=== PATIENT | female | born 1985 | race Asian ===

== ENCOUNTER 2021-08-20 10:12 | Emergency (ER) | payer OTHER ==
[2021-08-20] MEDS ORDERED: cefTRIAXone 1 GM VIAL IM STA (10:47)
[2021-08-20] MEDS ORDERED: LIDOCAINE 1% 2 ML VIAL MC ONE (10:47)
--- NOTE | 2021-08-20 10:49 | ED Physician Documentation ---
PD HPI UPPER EXT INJURY - Stated complaint Stated Complaint: SWELLING RT HAND - Chief complaint Chief Complaint: Ext Problem - History obtained from History obtained from: Patient - History of Present Illness Location: Right, Hand Type of injury: Burn Where injury occurred: Home Timing - onset: How many days ago (4) Timing - duration: Days (4) Timing - details: Abrupt onset, Still present Improved by: Rest, Immobilization Worsened by: Moving, Palpating Associated symptoms: Swelling, Discolored. No: Weakness, Numbness Contributing factors: No: Anticoagulated Similar symptoms before: Has not had sx before Recently seen: Clinic - Additonal information Additional information: 36-year-old female reports that she burned her finger on the barbecue 4 days ago and she just burned the third and fourth digits over the proximal phalange and not very badly. Subsequently she has developed redness and swelling this extended up the dorsum of the hand all the way to the wrist. Day by day swelling and tenderness have gotten worse. [place] to [place] hospital here for treatment. She denies any fever she denies any recent illness. She does not have much in the way of pain associated with this. Review of Systems Constitutional: denies: Fever Eyes: denies: Decreased vision Ears: denies: Ear pain Nose: denies: Congestion Throat: denies: Sore throat Cardiac: denies: Chest pain / pressure Respiratory: denies: Dyspnea GI: denies: Abdominal Pain, Nausea, Vomiting, Constipation, Diarrhea : denies: Dysuria, Frequency PD PAST MEDICAL HISTORY - Past Medical History Past Medical History: No - Past Surgical History Past Surgical History: Yes Ortho: Rotator cuff repair - Present Medications Home Medications: Ambulatory Orders Medication Instructions Recorded Confirmed cephALEXin [Keflex] 500 mg PO Q6H #28 cap 08/20/21 - Allergies Allergies/Adverse Reactions: Allergies Allergy/AdvReac Type Severity Reaction Status Date / Time No Known Drug Allergies Allergy Verified 08/20/21 10:35 - Social History Does the pt smoke?: No Smoking Status: Never smoker Does the pt drink ETOH?: No Does the pt have substance abuse?: No - Immunizations Immunizations are current?: Yes PD ED PE NORMAL - Vitals Vital signs reviewed: Yes (normal afebrile ) - General General: Alert and oriented X 3, No acute distress, Well developed/nourished - HEENT HEENT: Atraumatic, PERRL, EOMI - Respiratory Respiratory: No respiratory distress - Derm Derm: Normal color, Warm and dry, No rash - Extremities Extremities: No deformity, Other (There is swelling and erythema over the dorsum of the hand that extends from the wrist into the third and fourth digitis proximal phlange. Blanching but without lymphangitic streaking. ) - Psych Psych: Normal mood, Normal affect Results - Vitals Vitals: Vital Signs - 24 hr 08/20/21 08/20/21 10:24 11:48 Temperature 36.1 C L Heart Rate 90 70 Respiratory 16 16 Rate Blood Pressure 116/75 122/77 O2 Saturation 98 99 Oxygen O2 Source Room air PD MEDICAL DECISION MAKING - ED course Complexity details: considered differential, d/w patient ED course: 36-year-old female who appears to have burned her fingers and not badly appears to have developed infection on the dorsum of the hand. She is treated for cellulitis and given instructions regarding return should she fail this management.Here in the emergency department she is given a dose of Rocephin [address] her on Keflex. Departure - Departure Disposition: 01 Home, Self Care Clinical Impression: Cellulitis Qualifiers: Site of cellulitis: extremity Site of cellulitis of extremity: upper extremity Laterality: right Qualified Code(s): L03.113 - Cellulitis of right upper limb Instructions: ED Infec Skin Cellulitis Follow-Up: KARLO REINA MD [Primary Care Provider] - Prescriptions: cephALEXin [Keflex] 500 mg PO Q6H #28 cap Discharge Date/Time: 08/20/21 11:49
[2021-08-20 11:49] VITALS: BP 122/77
== END 2021-08-20 11:49 | disposition home or self-care (01) ==
LOC: ED 10:12
DX: L03.113 Cellulitis of right upper limb (principal); T23.131A Burn of first degree of multiple right fingers (nail), not including thumb, initial encounter; X19.XXXA Contact with other heat and hot substances, initial encounter; Y92.009 Unspecified place in unspecified non-institutional (private) residence as the place of occurrence of the external cause
CPT/HCPCS: 96372; 99282; 99283